=== PATIENT | male | born 2000 | race Two or more races ===

== ENCOUNTER 2024-06-21 13:08 | Emergency (ER) | payer BC ==
[2024-06-21 13:17] VITALS: BMI 24.9
[2024-06-21] MEDS ORDERED: LACTATED RINGERS SOLUTION 1000 ML INFUS.BAG IV ONE (13:45)
[2024-06-21] MEDS ORDERED: IBUPROFEN 600 MG TABLET (FP) PO ONE ×2 (13:50→17:48)
[2024-06-21] MEDS: LACTATED RINGERS SOLUTION 1000 ML INFUS.BAG IV ONE ×2 (13:50→14:00)
[2024-06-21 13:57] LABS: BASO % 0.3 % (0-2.0); EOS % 1.8 % (0-4.5); HEMATOCRIT 40.9 % (35.4-49); HEMOGLOBIN 14.1 GM/dL (11.7-16.9); LYMPH % 8.2 % (8-40); MCH 29.6 pg (25.7-33.7); MCHC 34.4 g/dl (32.0-35.9); MEAN PLT VOLUME 8.7 fl (7.5-11.1); MONO % 7.8 % (3.8-10.2); NEUT % 81.9 % (42.8-82.8); PLATELET COUNT 160 10^3/uL (134-434); RBC 4.75 M/mm3 (4.00-5.60); RDW 13.8 % (11.9-15.9); WHITE BLOOD COUNT 9.1 K/mm3 (4.0-10.0)
[2024-06-21] MEDS: SODIUM CHLORIDE 0.9% 500 ML INFUS.BAG IV ONE (14:00)
[2024-06-21] MEDS: IBUPROFEN 600 MG TABLET (FP) PO ONE (14:00)
[2024-06-21 14:03] LABS: INR 1.26 (0.83-1.09); PROTHROMBIN TIME (PATIENT) 14.1 SEC (9.7-13.0)
[2024-06-21 14:06] LABS: ACTIVATED PTT 40.1 SECONDS (25.2-36.5)
[2024-06-21 14:13] LABS: VENOUS BASE EXCESS 0.4 mmol/L (-2-2); VENOUS O2 SATURATION 59.3 % (70-80); VENOUS PCO2 42.7 mmHg (38-52); VENOUS PH 7.394 (7.310-7.410)
[2024-06-21 14:30] LABS: CALCIUM 9.3 mg/dL (8.5-10.1)
[2024-06-21 14:31] LABS: ALBUMIN 4.1 g/dl (3.4-5.0); BLOOD UREA NITROGEN 7.5 mg/dL (7-18); LACTIC ACID 2.1 mmol/L (0.4-2.0)
[2024-06-21 14:34] LABS: CREATININE 1.2 mg/dL (0.55-1.3)
[2024-06-21 14:36] LABS: BILIRUBIN,TOTAL 0.6 mg/dL (0.2-1); TOT PROT 7.6 g/dl (6.4-8.2)
[2024-06-21] MEDS ORDERED: CEFTRIAXONE 1 GM/50 ML BAG ONE (14:40)
[2024-06-21] MEDS: CEFTRIAXONE 1,000 MG in DEXTROSE 5%-WATER - 50 ML IVPB ONE (14:46)
[2024-06-21 15:12] VITALS: BP 125/70; PULSE 68; RESP 17; TEMP 98.7
[2024-06-21 16:31] LABS: URINE APPEARANCE CLEAR; URINE BILIRUBIN NEGATIVE (NEGATIVE); URINE COLOR YELLOW; URINE GLUCOSE (UA) NEGATIVE (NEGATIVE); URINE KETONE NEGATIVE (NEGATIVE); URINE LEUK ESTERASE NEGATIVE (NEGATIVE); URINE NITRITE NEGATIVE (NEGATIVE); URINE PROTEIN NEGATIVE (NEGATIVE); URINE UROBILINOGEN 0.2 mg/dL (0.2-1.0)
[2024-06-21] MEDS ORDERED: AZITHROMYCIN IVPB 500 MG/250 ML BAG IVPB ONE (16:34)
[2024-06-21] MEDS: AZITHROMYCIN IVPB 500 MG in DEXTROSE 5%-WATER - 250 ML IVPB ONE (16:47)
[2024-06-21] MEDS: IBUPROFEN 400 MG TABLET (FP) PO ONE (17:49)
[2024-06-21 17:56] LABS: HIV INTERPRETATION NEGATIVE (NEGATIVE)
== END 2024-06-21 18:06 | disposition home or self-care (01) ==
LOC: JER 13:08
DX: J18.9 Pneumonia, unspecified organism (principal); R50.9 Fever, unspecified; R05.9 Cough, unspecified; R53.1 Weakness; M79.10 Myalgia, unspecified site; R11.0 Nausea; R00.0 Tachycardia, unspecified; R06.02 Shortness of breath
CPT/HCPCS: 0241U-QW; 36415; 71046-TC-FY; 71275-TC; 80053; 81003; 82803; 83605; 85025; 85610; 85730; 86803; 86850; 86900; 86901; 87040; 87086; 87389; 87651; 93005; 93010; 99285-25; Q9967